=== PATIENT | female | born 1990 | race African-American/Black ===

== ENCOUNTER 2022-04-25 19:01 | Emergency (ER) | payer OTHER, SELFPAY ==
[2022-04-25 19:16] VITALS: BP 131/76; PULSE 97; RESP 18; TEMP 36.5; O2SAT 100
--- NOTE | 2022-04-25 19:38 | ED.WOUNDLAC ---
HPI - Wound/Laceration General Chief Complaint: Wound/Laceration Stated Complaint: HAND LAC Time Seen by Provider: 04/25/22 19:24 History of Present Illness HPI narrative: Patient is a 32-year-old right-handed female here for evaluation of a laceration to her left hand sustained from a piece of broken glass about 30 minutes prior to arrival. Patient states that she was doing dishes when she reached her hand in the basin and when she reached her hand that she noticed a laceration to the dorsal aspect of her hand. She is unsure of her last tetanus shot. Bleeding controlled [employer]. No difficulty moving the digits or numbness or tingling in the hand. Related Data Home Medications Medication Instructions Recorded Confirmed levonorgestrel 17.5 mcg/24 hrs 1 device intrauterine ONCE 12/25/21 12/25/21 (5yrs) 19.5mg intrauterine device (Kyleena) Allergies Allergy/AdvReac Type Severity Reaction Status Date / Time No Known Allergies Allergy Verified 12/25/21 11:36 Review of Systems Review of Systems: Gen.: Denies fevers or chills Eyes: Denies eye pain or visual change ENT: Denies congestion Respiratory: Denies shortness of breath or cough CV: Denies chest pain or palpitations GI: Reports abdominal pain nausea, emesis or diarrhea denies burning, urgency, frequency or hematuria Musculoskeletal: Denies back pain or muscle pain Neuro: Denies numbness, tingling, weakness or focal weakness Skin: Reports laceration 10 point review of systems negative, other than as per history of present illness, past medical history and other positives and review of systems [facility] Past Medical History Medical History Anxiety History of genital warts Surgical History Surgical History History of cholecystectomy Family History Family History Other Alcoholism Depression Diabetes mellitus Heart disease History of cancer Hypertension Social History Social History Smoking status: Never smoker Alcohol intake: never Substance use: never Exam Narrative: Gen: Alert, oriented, no acute distress Eyes: EOMI, no icterus Pulm: Respirations even and unlabored, symmetric thorax expansion, no audible stridor or visible cyanosis CV: Regular rate per telemetry GI: No distension, no voluntary/involuntary guarding Neuro: AOx4, moves all extremities without apparent difficulty or weakness, follows commands MSK: Full range of motion in the hand without difficulty. Skin: Patient has a 1 cm linear laceration to the dorsal aspect of her left hand just proximal to the PIP with no active bleeding, no visible tendon involvement Psych: Normal mood/affect, insight/judgement good, adequate fund of knowledge, recent/remote memory intact Course Vital Signs Vital signs: Vital Signs Temperature 97.7 F 04/25/22 19:16 Pulse Rate 97 04/25/22 19:16 Respiratory Rate 18 04/25/22 19:16 Blood Pressure 131/76 04/25/22 19:16 Pulse Oximetry 100 04/25/22 19:16 Oxygen Delivery Room Air 04/25/22 19:16 Temperature 97.7 F 04/25/22 19:16 Pulse Rate 97 04/25/22 19:16 Respiratory Rate 18 04/25/22 19:16 Blood Pressure 131/76 04/25/22 19:16 Pulse Oximetry 100 04/25/22 19:16 Oxygen Delivery Room Air 04/25/22 19:16 Procedures Laceration Laceration 1: Date: 04/25/22 Time: 20:02 Site: other (hand) Side (If applicable): left Size (cm): 1 Description: linear Depth: simple, single layer Local Anesthetic: other anesthetic (LET) Pre-repair: wound explored and irrigated ====== Skin Level ====== Skin layer closed with: other (ethilon) Size (cm): 5-0 Number of sutures: 2 Technique: simple, interrupted
[2022-04-25] MEDS: LIDOCAINE, EPINEPHRINE, TETRACAINE VISCOUS SOLN 3 ML TOPICAL (19:48)
[2022-04-25] MEDS: TETANUS,DIPHTHERIA,AC PERTUSSIS ADULT (0.5 ML) BOOSTRIX IM (20:09)
== END 2022-04-25 20:20 | disposition home or self-care (01) ==
PROVIDERS: Emergency Provider Physician Assistant
DX: S61.412A Laceration without foreign body of left hand, initial encounter (principal); W25.XXXA Contact with sharp glass, initial encounter; F41.9 Anxiety disorder, unspecified; Z23 Encounter for immunization
CPT/HCPCS: 12041; 90471; 90715; 99282

== ENCOUNTER 2023-02-18 15:25 | Outpatient (CLI) | payer OTHER, SELFPAY ==
[2023-02-18 21:17] LABS: Hepatitis B Surface Antigen Negative (Negative)
[2023-02-18 21:26] LABS: HIV 1/2 Ab P24 Ag Result Negative (Negative)
[2023-02-18 21:34] LABS: Hepatitis C Virus Antibody Negative (Negative)
[2023-02-19 14:31] LABS: Rapid Plasma Reagin Non-Reactive (NonReactive)
== END 2023-02-18 15:26 | disposition home or self-care (01) ==
LOC: ANHLAB 15:30
PROVIDERS: Visit Provider Obstetrics & Gynecology
DX: Z20.2 Contact with and (suspected) exposure to infections with a predominantly sexual mode of transmission (principal)
CPT/HCPCS: 36415; 86592; 86703; 86803; 87340; G0432